=== PATIENT | male | born 1975 | race Caucasian/White ===

== ENCOUNTER 2022-07-16 08:44 | Emergency (ER) | payer BC ==
[2022-07-16] MEDS ORDERED: Ketorolac 60 MG/2 ML SDV IM ONE (09:14)
[2022-07-16] MEDS ORDERED: HYDROmorphone 1 MG/ML Syringe IM ONE (09:14)
== END 2022-07-16 09:41 | disposition home or self-care (01) ==
LOC: JD.ED 08:44
DX: K04.7 Periapical abscess without sinus (principal); Z72.0 Tobacco use
CPT/HCPCS: 96372; 99282; J1170; J1885; 99283

== ENCOUNTER 2022-09-12 21:46 | Emergency (ER) | payer BC ==
[2022-09-12] MEDS ORDERED: Fluorescein 1 MG Ophth Strip EYELF ONE (22:37)
[2022-09-12] MEDS ORDERED: Proparacaine 0.5% Ophth Soln 15 ML Bottle EYELF SCH (22:45)
[2022-09-12] MEDS ORDERED: Diphtheria,Pertussis(Acell),Tetanus Vaccine 0.5 ML Syringe IM ONE (22:59)
[2022-09-12] MEDS ORDERED: Erythromycin Base 0.5% Ophth Oint 1 GM Tube EYELF ONE (23:02)
== END 2022-09-12 23:13 | disposition home or self-care (01) ==
LOC: JD.ED 21:46
DX: T15.02XA Foreign body in cornea, left eye, initial encounter (principal); F17.210 Nicotine dependence, cigarettes, uncomplicated; Z23 Encounter for immunization; W26.8XXA Contact with other sharp object(s), not elsewhere classified, initial encounter
CPT/HCPCS: 65222; 90471; 90715; 99283; A9270; J3490

== ENCOUNTER 2022-10-04 14:24 | Emergency (ER) | payer BC ==
[2022-10-04] MEDS ORDERED: Lidocaine 1% 10 ML MDV INJECT ONE (15:32)
== END 2022-10-04 16:36 | disposition home or self-care (01) ==
LOC: JD.ED 14:24
DX: S01.81XA Laceration without foreign body of other part of head, initial encounter (principal); F17.210 Nicotine dependence, cigarettes, uncomplicated; W01.198A Fall on same level from slipping, tripping and stumbling with subsequent striking against other object, initial encounter; Y92.009 Unspecified place in unspecified non-institutional (private) residence as the place of occurrence of the external cause
CPT/HCPCS: 12013; 99283; J3490